=== PATIENT | male | born 1930 | race African-American/Black ===

== ENCOUNTER 2018-01-13 15:54 | Inpatient (IN) | payer OTHER ==
[~2018-01-13] VITALS: Ht 172.7 cm; Wt 83.5 kg
[2018-01-13 16:31] LABS: BASOPHILS % 0.7 % (0.0-2.0); EOSINOPHILS % 0.5 % (0.0-5.0); HEMATOCRIT. 40.6 % (42.0-52.0); HEMOGLOBIN. 13.6 g/dL (14.0-18.0); LYMPHOCYTES % 29.9 % (20.0-50.0); MEAN CORPUSCULAR HEMOGLOBIN 29.7 pg (28.0-32.0); MEAN CORPUSCULAR VOLUME 88.4 fL (80.0-94.0); MEAN PLATELET VOLUME 9.8 fl (7.4-10.4); MONOCYTES % 9.8 % (2.0-8.0); NEUTROPHILS % 59.1 % (40.0-76.0); PLATELET 191 x1000/uL (130-400); RED BLOOD CELL COUNT 4.59 mill/uL (4.7-6.1); RED CELL DISTRIBUTION WIDTH 13.6 % (11.6-14.6)
[2018-01-13 16:36] LABS: CHLORIDE 104 mEq/L (98-107)
[2018-01-13 16:37] LABS: INR 1.1; PROTHROMBIN TIME 10.7 sec (9.1-11.1)
[2018-01-13 16:40] LABS: ETHANOL BLOOD < 10 mg/dL
[2018-01-13 16:43] LABS: LDL CHOLESTEROL 79 mg/dL (5-100)
[2018-01-13 17:07] LABS: BG BASE EXCESS -1.9 mmol/L (-2.0-2.0); BG CARBOXYHEMOGLOBIN 0.8 % (0.5-1.5); BG DEOXYHEMOGLOBIN 6.1 % (0.0-5.0); BG FRACTION INSPIRED OXYGEN 21; BG METHEMOGLOBIN 0.1 % (0.0-1.5); BG OXYGEN SATURATION 93.8 % (92.0-98.5); BG PCO2 30.9 mmHg (35.0-45.0); BG PH 7.451 (7.350-7.450); BG PO2 68.7 mmHg (75.0-100.0); BG SAMPLE SITE LEFT RADIAL; BG TOTAL HEMOGLOBIN 13.8 g/dL (12.0-18.0); BG VENT MODE ROOM AIR
[2018-01-13 21:30] VITALS: BP 167/89
[2018-01-13] MEDS ORDERED: IPRATROPIUM/ALBUTEROL 0.5-3(2.5)MG/3ML NEB INH PRN (21:45)
[2018-01-13] MEDS ORDERED: GUAIFENESIN 200MG/10ML SUGAR FREE UDC PO PRN (21:45)
[2018-01-13] MEDS ORDERED: ACETAMINOPHEN 325MG TABLET PO PRN (21:45)
[2018-01-13] MEDS ORDERED: ONDANSETRON HCL 4MG/2ML VIAL IV PRN (21:45)
[2018-01-13] MEDS ORDERED: DIPHENHYDRAMINE 50MG/ML VIAL IV PRN (21:45)
[2018-01-13] MEDS: SODIUM CHLORIDE 0.9% INJ 3ML FLUSH IVF SCH (22:00)
[2018-01-13 22:26] LABS: CLARITY URINE CLOUDY (CLEAR); COLOR URINE DARK YELLOW (YELLOW); KETONES URINE 1+ (NEGATIVE); LEUKOCYTE ESTERASE URINE TRACE (NEGATIVE); NITRITE URINE NEGATIVE (NEGATIVE); OCCULT BLOOD URINE NEGATIVE (NEGATIVE); PROTEIN URINE TRACE (NEGATIVE); SPECIFIC GRAVITY URINE 1.026 (1.005-1.030)
[2018-01-13 22:40] LABS: *BENZODIAZEPINES SCREEN URINE NEGATIVE (NEGATIVE)
[2018-01-13 22:41] VITALS: BP 167/89
[2018-01-13 22:41] LABS: *AMPHETAMINES SCREEN URINE NEGATIVE (NEGATIVE); *COCAINE SCREEN URINE NEGATIVE (NEGATIVE); METHADONE URINE SCREEN NEGATIVE (NEGATIVE); OPIATES URINE SCREEN NEGATIVE (NEGATIVE)
[2018-01-13 22:42] LABS: *BARBITURATES SCREEN URINE NEGATIVE (NEGATIVE); CANNABINOID URINE SCREEN NEGATIVE (NEGATIVE); PHENCYCLIDINE URINE SCREEN NEGATIVE (NEGATIVE)
[2018-01-14] VITALS: BP 133/74
[2018-01-14] MEDS ORDERED: CLONIDINE 0.1MG TABLET PO PRN (00:45)
[2018-01-14 04:00] VITALS: BP 148/94
[2018-01-14] MEDS: SODIUM CHLORIDE 0.9% INJ 3ML FLUSH IVF SCH ×3 (06:18→21:10)
[2018-01-14] MEDS: AMLODIPINE 5MG TABLET PO SCH ×2 (09:44→21:00)
[2018-01-14] MEDS ORDERED: OMEP20CA10 PO (15:39)
[2018-01-14] MEDS ORDERED: ATOR20TA65 PO (15:39)
[2018-01-14] MEDS ORDERED: ESCI5SOL2 PO (15:39)
[2018-01-14] MEDS ORDERED: ASPI-1079 PO (15:39)
[2018-01-14 20:00] VITALS: BP 115/73
[2018-01-15] VITALS: BP 129/74
[2018-01-15 04:00] VITALS: BP 139/91
[2018-01-15] MEDS: SODIUM CHLORIDE 0.9% INJ 3ML FLUSH IVF SCH ×2 (06:00→15:08)
[2018-01-15 08:00] VITALS: BP 138/75
[2018-01-15] MEDS: AMLODIPINE 5MG TABLET PO SCH (08:41)
[2018-01-15 12:00] VITALS: BP 110/66
[2018-01-15] MEDS ORDERED: NEOMY SULF/BACITRAC ZN/POLY OINT 28GM TOP SCH (14:00)
== END 2018-01-15 15:40 | disposition short-term general hospital (02) | DRG 66 ==
LOC: ER 15:54 → 8WST 20:01 → EDBEDREQTM 20:24 → ENRESERV 20:38
PROVIDERS: ADMIT Internal Medicine; ATTEND Internal Medicine
DX: I63.9 Cerebral infarction, unspecified (principal); D18.1 Lymphangioma, any site; I48.0 Paroxysmal atrial fibrillation; J44.9 Chronic obstructive pulmonary disease, unspecified; R29.6 Repeated falls; Z60.2 Problems related to living alone; M19.90 Unspecified osteoarthritis, unspecified site; R73.03 Prediabetes; E88.81 Metabolic syndrome and other insulin resistance; Z85.118 Personal history of other malignant neoplasm of bronchus and lung; Z79.82 Long term (current) use of aspirin; Z79.899 Other long term (current) drug therapy
CPT/HCPCS: 36415; 36600; 70450; 70551; 71045; 72141; 80053; 80305; 81003; 82375; 82805; 82962; 83605; 83721; 84484; 85025; 85610; 93005; 93970; 99291; G0482